=== PATIENT | female | born 1950 | race Caucasian/White ===

== ENCOUNTER 2020-05-30 09:24 | Emergency (ER) | payer MEDICARE ==
[~2020-05-30] VITALS: Ht 165.1 cm; Wt 131.5 kg
[~2020-05-30 09:24] MED LIST: LEVFLO500; PHENA200
[2020-05-30 09:55] LABS: BASOPHILS ABSOLUTE AUTO 0.04 K/mm3 (0.00-0.23); BASOPHILS PERCENT AUTO 1 % (0-2); EOSINOPHILS ABSOLUTE AUTO 0.19 K/mm3 (0.00-0.68); EOSINOPHILS PERCENT AUTO 3 % (0-6); Hematocrit 44.4 % (33.0-51.0); Hemoglobin 14.4 g/dL (11.5-16.0); IMMATURE GRAN ABSOLUTE AUTO 0.02 K/mm3 (0.00-0.10); IMMATURE GRAN PERCENT AUTO 0 % (0-1); LYMPHOCYTES ABSOLUTE AUTO 3.03 K/mm3 (0.84-5.20); LYMPHOCYTES PERCENT AUTO 46 % (21-46); MONOCYTES ABSOLUTE AUTO 0.55 K/mm3 (0.16-1.47); MONOCYTES PERCENT AUTO 8 % (4-13); Mean Corpuscular HGB 31.2 pg (26.0-34.0); Mean Corpuscular HGB Conc 32.4 g/dL (31.5-36.5); Mean Corpuscular Volume 96 fL (80-100); Mean Platelet Volume 9.2 fL (9.1-12.4); NEUTROPHILS ABSOLUTE AUTO 2.74 K/mm3 (1.96-9.15); NEUTROPHILS PERCENT AUTO 42 % (41-73); Platelet Count 267 K/mm3 (150-400); RDW Coefficient Variation 14.7 % (11.7-14.2); RDW Standard Deviation 51.7 fL (35.1-46.3); Red Blood Cell Count 4.62 M/mm3 (3.80-5.20); White Blood Cell Count 6.57 K/mm3 (4.00-11.30)
[2020-05-30] MEDS ORDERED: LOSARTAN POT TAB 100 (09:57)
[2020-05-30] MEDS ORDERED: ESTRADIOL1 M1 (09:57)
[2020-05-30] MEDS ORDERED: HYDROCHLOROT TAB 25M (09:57)
[2020-05-30 10:19] LABS: Alanine Aminotransfer (ALT/SGP 23 U/L (12-78); Albumin, Blood 3.8 g/dL (3.4-5.0); Albumin/Globulin Ratio 1.1 (0.8-1.8); Alk Phos 78 U/L (50-136); Anion Gap 5 mmol/L (6-16); Aspartate Aminotrans (AST/SGOT 15 U/L (12-37); Bilirubin, Total 0.7 mg/dL (0.1-1.0); Blood Urea Nitrogen 12 mg/dL (8-24); Bun/Creatinine Ratio 17.5 (12.0-20.0); CO2, Blood 30 mmol/L (21-32); Calcium, Blood 8.9 mg/dL (8.5-10.1); Chloride, Blood 103 mmol/L (98-108); Creatinine, Blood 0.69 mg/dL (0.40-1.00); Globulin, Blood 3.5 g/dL (2.2-4.0); Glomerular Filtration Rate >60 (60-); Glucose, Blood 110 mg/dL (70-99); Potassium, Blood 3.8 mmol/L (3.5-5.5); Sodium, Blood 138 mmol/L (136-145); Total Protein, Blood 7.3 g/dL (6.4-8.2); Troponin I <0.015 ng/mL (0.000-0.040)
[2020-05-30] MEDS ORDERED: ZOLOFT50 MG PO (10:45)
== END 2020-05-30 11:44 | disposition home or self-care (01) ==
LOC: ER 09:24
PROVIDERS: Emergency Medicine
DX: I10 Essential (primary) hypertension (principal); Z88.5 Allergy status to narcotic agent
CPT/HCPCS: 36415; 70450; 80053; 84484; 85025; 93005; 93010; 99284-25; A9270-GY

== ENCOUNTER 2024-06-05 14:03 | Day surgery (SDC) | payer OTHER ==
[~2024-06-05] VITALS: Ht 157.5 cm; Wt 105.7 kg
[~2024-06-05 14:03] MED LIST changes: +ESTRADIOL1 M1; +HYDROCHLOROT TAB 25M; +LOSARTAN POT TAB 100; +Lactated Ringer's 1,000 ML IV ONE; +Lidocaine 2% 5 ML SDV ONE; +Lidocaine HCl/Pf 1% 5 ML VIAL ONE; +Methylene Blue 1% 100 MG/10 ML VIAL ONE; +ZOLOFT50 MG PO
[2024-06-05] MEDS ORDERED: Bupropion HCl75 MG (15:16)
[2024-06-05] MEDS ORDERED: NIFE30ER (15:17)
[2024-06-05] MEDS ORDERED: Lactated Ringer's 1,000 ML IV ONE (15:51)
[2024-06-05] MEDS ORDERED: propofoL 50 ML IV ONE (15:54)
[2024-06-05 17:04] VITALS: BP 118/63
== END 2024-06-05 16:45 | disposition home or self-care (01) ==
LOC: ORSCSDS 14:03
PROVIDERS: Internal Medicine Gastroenterology
PROC: 0DB68ZX Excision of Stomach, Via Natural or Artificial Opening Endoscopic, Diagnostic (ICD-10-PCS; principal; 2024-06-05 15:30)
PROC: 0DB58ZX Excision of Esophagus, Via Natural or Artificial Opening Endoscopic, Diagnostic (ICD-10-PCS; principal; 2024-06-05 15:30)
DX: K21.9 Gastro-esophageal reflux disease without esophagitis (principal); I10 Essential (primary) hypertension; Z79.899 Other long term (current) drug therapy; Z68.41 Body mass index [BMI] 40.0-44.9, adult
CPT/HCPCS: 88305; 88342; J2001; J2704; J7120; Q9968

== ENCOUNTER 2025-03-16 10:16 | Day surgery (SDC) | payer OTHER ==
[~2025-03-16] VITALS: Ht 160 cm; Wt 81.8 kg
[2025-03-16] VITALS (11 sets, daily range): BP systolic 105–148; BP diastolic 53–110
[~2025-03-16 10:16] MED LIST changes: +Acetaminophen 500 MG Tab PO SCH; +Bupropion HCl75 MG; +CeFAZolin Sodium 2,000 MG in NS 100 ML IV SCH; +Chlorhexidine Mouth Care 15 ML UDC MT SCH; -Lactated Ringer's 1,000 ML IV ONE; +Lactated Ringer's 1,000 ML IV SCH; -Lidocaine 2% 5 ML SDV ONE; -Lidocaine HCl/Pf 1% 5 ML VIAL ONE; -Methylene Blue 1% 100 MG/10 ML VIAL ONE; +NIFE30ER; +OxyCODONE HCL 10 MG TABCR PO SCH; +Ropivacaine 0.5% HCl/Pf 123.125 MG,EPINEPHrine HCL 0.25 MG,Ketorolac Tromethamine 15 MG... INFIL SCH; +Tranexamic Acid 100 ML IV SCH
[2025-03-16] MEDS ORDERED: ATOR80 (10:45)
[2025-03-16] MEDS ORDERED: Carvedilol12.5 MG PO (10:47)
[2025-03-16] MEDS ORDERED: CLOP75 (10:47)
[2025-03-16] MEDS ORDERED: LOSA50 (10:48)
[2025-03-16] MEDS ORDERED: BUPR150ER (10:48)
--- NOTE | 2025-03-16 10:50 | NUR ---
Ambulatory in Day SurgeryPre-Op teaching done. Pt verbalizes understanding. History, Chart, Medications and Allergies reviewed before start of procedure.Patient confirms NPO status and agrees with scheduled surgery. Patient reports completing Chlorhexadine shower X2 prior to admission to hospital.
--- NOTE | 2025-03-16 11:05 | NUR ---
PATIENT REPORTS HER RIGHT UPPER CANINE TOOTH IS LOOSE
[2025-03-16] MEDS ORDERED: Midazolam HCl 1MG / ML 2ML Vial ONE (11:52)
[2025-03-16] MEDS ORDERED: propofoL 20 ML IV ONE ×4 (12:03→13:30)
[2025-03-16] MEDS ORDERED: Phenylephrine HCl 100 MCG/ML-NS 10MLSYR (1MG/10ML) ONE (12:18)
[2025-03-16] MEDS ORDERED: Glycopyrrolate 0.2 MG/ML 5ML VIAL ONE (12:20)
[2025-03-16] MEDS ORDERED: Magnesium Hydroxide Conc 10 ML UDC PO PRN (12:40)
[2025-03-16] MEDS ORDERED: Ondansetron HCl 2 MG / ML 2ML Vial IV PRN ×2 (12:45→13:00)
[2025-03-16] MEDS ORDERED: Metoclopramide HCl 5MG / ML 2ML Vial IV PRN (12:45)
[2025-03-16] MEDS ORDERED: HYDROmorphone HCl/Pf 1MG SYR IV PRN ×3 (12:45→13:00)
[2025-03-16] MEDS ORDERED: DiphenhydrAMINE HCL 25 MG Cap PO PRN (12:45)
[2025-03-16] MEDS ORDERED: Promethazine HCl 25 MG Tab PO PRN (12:45)
[2025-03-16] MEDS ORDERED: Bisacodyl 10 MG Supp PR PRN (12:50)
[2025-03-16] MEDS ORDERED: OxyCODONE HCL 5 MG TAB PO PRN ×2 (12:50)
[2025-03-16] MEDS ORDERED: Albuterol 2.5 MG/3 ML VIAL INH PRN (12:55)
[2025-03-16] MEDS ORDERED: FentaNYL Citrate 50 MCG/ML 2 ML Injection IV PRN ×2 (13:00)
[2025-03-16] MEDS ORDERED: Labetalol HCL 5 MG/ML 4ML Injection (Single Dose) IV PRN (13:00)
[2025-03-16] MEDS ORDERED: ePHEDrine Sulfate 50 MG/ML 1ML Injection ONE (13:25)
[2025-03-16] MEDS ORDERED: Lactated Ringer's 1,000 ML IV SCH (13:40)
[2025-03-16] MEDS ORDERED: Ketorolac Tromethamine 30mg Vial ONE (14:01)
[2025-03-16] MEDS ORDERED: FentaNYL Citrate 50 MCG/ML 2 ML Injection ONE (14:02)
[2025-03-16] MEDS ORDERED: Acetaminophen 500 MG Tab PO SCH (16:00)
[2025-03-16] MEDS ORDERED: Carvedilol 6.25 MG Tab PO SCH (17:00)
[2025-03-16] MEDS ORDERED: Percocet 5-3251 EACH PO (17:08)
--- NOTE | 2025-03-16 17:29 | NUR ---
DISCHARGE PT HAS WORKED w/ THERAPY. PAIN WELL CONTROLLED. EATING, DRINKING, & VOIDING WELL. POLAR PACK SENT w/ PT. ESCORTED OUT VIA W/C.
[2025-03-16] MEDS ORDERED: Ketorolac Tromethamine 15mg Vial IV SCH (18:00)
[2025-03-16] MEDS ORDERED: CeFAZolin Sodium 2,000 MG in NS 100 ML IV SCH (20:00)
[2025-03-16] MEDS ORDERED: Docusate Sodium 100 MG Cap PO SCH (21:00)
[2025-03-17] MEDS ORDERED: Losartan Potassium 50 MG Tab PO SCH (09:00)
[2025-03-17] MEDS ORDERED: Atorvastatin 10 MG Tab PO SCH (09:00)
== END 2025-03-16 17:29 | disposition home or self-care (01) ==
LOC: ORSCMMR 10:16 → ORD 10:16 → ORSCMMR 10:20 → ORD 11:00 → ORSCMMR 13:39 → SURS 14:30 → ORSCMMR 17:29 → ORD 17:29
PROVIDERS: Orthopaedic Surgery
PROC: 0SRC0JA Replacement of Right Knee Joint with Synthetic Substitute, Uncemented, Open Approach (ICD-10-PCS; principal; 2025-03-16 12:00)
PROC: 8E0Y0CZ Robotic Assisted Procedure of Lower Extremity, Open Approach (ICD-10-PCS; principal; 2025-03-16 12:00)
DX: M17.11 Unilateral primary osteoarthritis, right knee (principal); I10 Essential (primary) hypertension; Z86.73 Personal history of transient ischemic attack (TIA), and cerebral infarction without residual deficits; Z79.02 Long term (current) use of antithrombotics/antiplatelets; Z79.899 Other long term (current) drug therapy
CPT/HCPCS: 73560-RT; A9270; C1713; C1776; J0171; J0690; J0735; J1885; J2250; J2371; J2704; J2795; J3010; J7120

== ENCOUNTER → 2025-06-13 | Outpatient (CLI) | payer OTHER ==
[~2025-06-13] MED LIST changes: +ATOR80 PO; -Acetaminophen 500 MG Tab PO SCH; +BUPR150ER PO; +CARV6.25 PO; +CLOP75 PO; -CeFAZolin Sodium 2,000 MG in NS 100 ML IV SCH; -Chlorhexidine Mouth Care 15 ML UDC MT SCH; +LOSA50; -Lactated Ringer's 1,000 ML IV SCH; -OxyCODONE HCL 10 MG TABCR PO SCH; +Percocet 5-3251 EACH PO; -Ropivacaine 0.5% HCl/Pf 123.125 MG,EPINEPHrine HCL 0.25 MG,Ketorolac Tromethamine 15 MG... INFIL SCH; -Tranexamic Acid 100 ML IV SCH
== END ==
LOC: LAB SHORT 17:19 → LAB 17:19
DX: N39.0 Urinary tract infection, site not specified (principal)
CPT/HCPCS: 87086

== ENCOUNTER 2025-07-27 08:30 | Day surgery (SDC) | payer OTHER ==
[~2025-07-27] VITALS: Ht 165.1 cm; Wt 84.8 kg
[2025-07-27] VITALS (12 sets, daily range): BP systolic 107–166; BP diastolic 58–99
[2025-07-27] MEDS ORDERED: Ropivacaine 0.5% HCl/Pf 123.125 MG,EPINEPHrine HCL 0.25 MG,Ketorolac Tromethamine 15 MG... INFIL SCH (09:25)
[2025-07-27] MEDS ORDERED: Chlorhexidine Mouth Care 15 ML UDC MT SCH (09:25)
[2025-07-27] MEDS ORDERED: Tranexamic Acid 100 ML IV SCH (09:25)
[2025-07-27] MEDS ORDERED: CeFAZolin Sodium 2,000 MG in NS 100 ML IV SCH ×2 (09:25→19:15)
--- NOTE | 2025-07-27 09:44 | NUR ---
Ambulatory in Day Surgery W/ ASSIST OF W/C FOR LONGER DISTANCE AND CANE. PT STATES HER RIGHT HIP IS BOTHERING HER ALOT TODAY Patient confirms NPO status and agrees with scheduled surgery. Pre-Op teaching done. Pt verbalizes understanding. History, Chart, Medications and Allergies reviewed before start of procedure. Patient reports completing Chlorhexadine shower X2 prior to admission to hospital.
[2025-07-27] MEDS ORDERED: HYDROmorphone HCl/Pf 1MG SYR IV PRN ×3 (10:35→13:20)
[2025-07-27] MEDS ORDERED: Ondansetron HCl 2 MG / ML 2ML Vial IV PRN ×2 (10:40→13:15)
[2025-07-27] MEDS ORDERED: Metoclopramide HCl 5MG / ML 2ML Vial IV PRN (10:40)
[2025-07-27] MEDS ORDERED: Magnesium Hydroxide Conc 10 ML UDC PO PRN (10:40)
[2025-07-27] MEDS ORDERED: Midazolam HCl 1MG / ML 2ML Vial IV ONE (10:45)
[2025-07-27] MEDS ORDERED: Midazolam HCl 1MG / ML 2ML Vial ONE (11:32)
[2025-07-27] MEDS ORDERED: Phenylephrine HCl 10mg/ml 1 ml Vial ONE (11:33)
[2025-07-27] MEDS ORDERED: Ketorolac Tromethamine 15mg Vial IV SCH (12:00)
[2025-07-27] MEDS ORDERED: Ketorolac Tromethamine 30mg Vial ONE (13:01)
[2025-07-27] MEDS ORDERED: Albuterol 2.5 MG/3 ML VIAL INH PRN (13:15)
[2025-07-27] MEDS ORDERED: FentaNYL Citrate 50 MCG/ML 2 ML Injection IV PRN ×2 (13:20)
--- NOTE | 2025-07-27 14:29 | NUR ---
ARRIVAL TO UNIT PT ARRIVED TO UNIT AT APPROX 1350. PT IS A/OX4. REPORTING SOME SENSATION BUT STILL IMPAIRED. DRESSING C/D/I. CALL LIGHT IN REACH AND EXPLAINED. PERSONAL BELONGINGS IN ROOM W/ PT. PT DAUGHTER IN ROOM.
[2025-07-27] MEDS ORDERED: FLU VACC TS2025(65UP)/MF59C/PF 45 MCG/0.5 ML SYRINGE IM SCH (16:00)
--- NOTE | 2025-07-27 17:11 | NUR ---
DISCHARGE NOTE PT IS A/OX4. TOLERATING PO INTAKE AND VOIDING WELL. PT DENIES N/V. PT REPORTS PAIN IS MANAGED. MANAGED PER EMAR. PT DEMONSTRATED UNDERSTANDING OF EXERCISES. PERSONAL BELONGINGS W/ PT DAUGHTER. SURGICAL SITE C/D/I. PT VERBALIZED UNDERSTANDING OF DC EDUCATION. ESCORTED OUT VIA WC AT APPROX 1705.
== END 2025-07-27 17:05 | disposition home or self-care (01) ==
LOC: ORSCMMR 08:30 → ORD 10:00 → ORSCMMR 10:00 → SURS 14:05 → ORSCMMR 17:05
PROVIDERS: Orthopaedic Surgery
PROC: 0SRD0JA Replacement of Left Knee Joint with Synthetic Substitute, Uncemented, Open Approach (ICD-10-PCS; principal; 2025-07-27 10:00)
DX: M17.12 Unilateral primary osteoarthritis, left knee (principal); I10 Essential (primary) hypertension; Z86.73 Personal history of transient ischemic attack (TIA), and cerebral infarction without residual deficits; Z79.899 Other long term (current) drug therapy
CPT/HCPCS: 73560-LT; A9270; C1776; J0166; J0690; J0735; J1885; J2250; J2371; J2704; J2795; J7120